=== PATIENT | female | born 2005 | race Caucasian/White ===

== ENCOUNTER 2024-07-17 11:08 | Outpatient (CLI) | payer BC, SELFPAY ==
[2024-07-17 12:08] LABS: Basophils % 0.5 % (0.1-2.0); Eosinophils # 0.1 Kmm3 (0.0-0.4); Eosinophils % 1.2 % (0.1-12.0); Hematocrit 43.9 % (37.0-47.0); Hemoglobin 14.5 g/dL (12.2-16.2); Immature Granulocytes # 0.03 10^3uL; Immature Granulocytes % 0.4 %; Lymphocytes # 2.2 K/mm3 (0.7-4.5); Lymphocytes % 27.8 % (10-50); Mean Corpuscular Hemoglobin 28.9 pg (27.0-31.2); Mean Corpuscular Volume 87.6 fl (81-99); Mean Platelet Volume 10.3 fl (7.4-10.4); Monocytes # 0.6 K/mm3 (0.1-1.0); Monocytes % 7.5 % (1.7-9.3); Neutrophils % 62.6 % (37.0-80.0); Nucleated Red Blood Cells # 0 10^3/uL; Nucleated Red Blood Cells % 0 %; Platelet Count 335 K/mm3 (142-424); Red Blood Count 5.01 M/mm3 (4.20-5.40); Red Cell Distribution Width 12.8 % (11.5-17.5); Red Cell Distribution Width-SD 40.9 fL
[2024-07-17 12:31] LABS: Albumin Level 4.8 g/dl (3.5-5.0); Chloride 104 mmol/L (98-107); Potassium 4.4 mmoL/L (3.5-5.1); Sodium 136 mmol/L (136-145)
[2024-07-17 12:33] LABS: Blood Urea Nitrogen 9 mg/dl (7-17); Estimated Glomerular Filt Rate 106 ml/min (>60); GFR (African American) 128 ML/MIN (>60)
[2024-07-17 12:34] LABS: Alanine Aminotransferase 15 U/L (12-78); Albumin/Globulin Ratio 1.5 (1.1-1.8); Alkaline Phosphatase 68 U/L (38-126); Anion Gap 11.4 mEq/L (5-15); Aspartate Amino Transferase 24 U/L (14-36); Bilirubin,Total 0.7 mg/dl (0.2-1.3); Calcium 9.9 mg/dl (8.4-10.2); Carbon Dioxide 25 mmol/L (22.0-30.0); Chol/HDL Ratio 4.7 (1-3.5); Cholesterol 226 mg/dl (140-200); Globulin 3.3 g/dL (1.3-3.2); Glucose 88 mg/dl (74-100); HDL Cholesterol 48 mg/dl (40-60); Total Protein,Serum 8.1 g/dl (6.3-8.2); Triglycerides 200 mg/dl (30-150); VLDL Cholesterol 40 mg/dL (0-40)
[2024-07-17 12:40] LABS: C-Reactive Protein 18.8 mg/L (0-4)
[2024-07-17 12:45] LABS: Direct LDL Cholesterol 139.78 mg/dL (100-129)
[2024-07-17 12:53] LABS: Free Thyroxine Index 3.5 ug/dL (5.93-13.13); T4 (Thyroxine) 16.6 ug/dl (5.53-11.0); Triiodothryronine (T3) Uptake 21 % (23.5-40.5)
[2024-07-17 13:06] LABS: Thyroid Stimulating Hormone 2.09 uIU/mL (0.465-4.68)
[2024-07-17 13:09] LABS: Ferritin 18.5 ng/ml (6.24-137)
[2024-07-17 13:12] LABS: Erythrocyte Sedimentation Rate 15 mm/hr (0-20)
[2024-07-17 13:43] LABS: Vitamin B12 210 pg/mL (239-931)
[2024-07-22 17:21] LABS: F001-IgE Egg White <0.10 kU/L (Class 0); F002-IgE Milk <0.10 kU/L (Class 0); F003-IgE Codfish <0.10 kU/L (Class 0); F004-IgE Wheat <0.10 kU/L (Class 0); F010-IgE Sesame Seed <0.10 kU/L (Class 0); F013-IgE Peanut <0.10 kU/L (Class 0); F014-IgE Soybean <0.10 kU/L (Class 0); F024-IgE Shrimp 0.86 kU/L (Class II); F256-IgE Walnut <0.10 kU/L (Class 0); F338-IgE Scallop <0.10 kU/L (Class 0)
== END 2024-07-17 23:59 | disposition home or self-care (01) ==
LOC: LAB 11:10
PROVIDERS: PCP Nurse Practitioner Family; Visit Provider Nurse Practitioner Family
DX: R19.8 Other specified symptoms and signs involving the digestive system and abdomen (principal); E55.9 Vitamin D deficiency, unspecified; L73.2 Hidradenitis suppurativa; R10.9 Unspecified abdominal pain
CPT/HCPCS: 36415; 80053; 80061; 82607; 82728; 82746; 84436; 84443; 84479; 85025; 85651; 86003; 86008; 86140